=== PATIENT | female | born 1990 | race African-American/Black ===

== ENCOUNTER 2018-02-09 20:52 | Emergency (ER) | payer MEDICARE, MEDICAID ==
[~2018-02-09] VITALS: Ht 154.9 cm; Wt 59.1 kg
[2018-02-09 21:03] VITALS: Ht 154.9 cm; Wt 59.1 kg
[2018-02-09 22:23] LABS: APPEARANCE CLEAR (CLEAR); BILIRUBIN NEGATIVE (NEGATIVE); COLOR STRAW (YELLOW); GLUCOSE 100 mg/dL (NEGATIVE); KETONE NEGATIVE (NEGATIVE); NITRITE NEGATIVE (NEGATIVE); PROTEIN TRACE mg/dL (NEGATIVE); SPECIFIC GRAVITY 1.005 (1.005-1.020); UROBILINOGEN NORMAL (NORMAL)
[2018-02-09 22:24] LABS: BACTERIA MODERATE /hpf (NONE SEEN); EPITHELIAL CELLS 0-5 /hpf (0-5); WHITE CELLS - URINE 0-5 /hpf (0-5)
[2018-02-09 22:51] LABS: HEMATOCRIT 36.4 % (36.0-48.0); HEMOGLOBIN 11.7 g/dL (12-16); MCH 23.4 pg (26.0-34.0); MCHC 32.1 g/dL (31.0-37.0); MCV 72.7 fL (80.0-100.0); PLATELET COUNT 151 10x3/uL (130-400); RBC 5.01 10x6/uL (4.00-5.40); RDW 16.3 % (11.5-14.5); WBC 21.2 10x3/uL (4.8-10.8)
[2018-02-09 22:54] LABS: APTT 20.1 SECONDS (22.8-39.4); INR 1.27 (0.85-1.17); PROTIME 15.5 SECONDS (11.6-15.0)
[2018-02-09 23:12] LABS: LYMPHOCYTES 17 % (15-50); MONOCYTES 3 % (2-11); NEUTROPHILS 71 % (40-80); PLATELET ESTIMATE DECREASED
[2018-02-09 23:25] LABS: ALBUMIN 2.7 g/dL (3.4-5.0); ALKALINE PHOSPHATASE 133 U/L (46-116); ALT (SGPT) 374 U/L (10-68); BILIRUBIN - TOTAL 0.17 mg/dL (0.2-1.3); CALC OSMOLALITY 296 mosm/kg (275-300); CARBON DIOXIDE 24.4 mmol/L (21.0-32.0); CHLORIDE - SERUM 109 mmol/L (98-107); CKMB 7.3 U/L (0.0-3.6); CREATININE - SERUM 0.9 mg/dL (0.6-1.3); GLUCOSE 185 mg/dL (74-106); LIPASE 290 U/L (73-393); MAGNESIUM - SERUM 1.3 mg/dL (1.8-2.4); PROTEIN - SERUM 6.1 g/dL (6.4-8.2); SODIUM 148 mmol/L (136-145); UREA NITROGEN 7 mg/dL (7-18); eGFR NON AFRICAN AMERICAN 78 mL/min (90-120)
[2018-02-09 23:27] LABS: CREATINE KINASE 2806 UL (21-215)
[2018-02-09 23:28] LABS: CALCIUM 6.6 mg/dL (8.5-10.1); POTASSIUM - SERUM 2.1 mmol/L (3.5-5.1); TROPONIN-I 0.381 ng/mL (0.000-0.060)
[2018-02-09 23:45] LABS: UDS - AMPHET NEGATIVE QUAL (NEGATIVE); UDS - BARB NEGATIVE QUAL (NEGATIVE); UDS - BENZO POSITIVE QUAL (NEGATIVE); UDS - COCAINE NEGATIVE QUAL (NEGATIVE); UDS - OPIATE NEGATIVE QUAL (NEGATIVE); UDS - PCP NEGATIVE QUAL (NEGATIVE); UDS - THC NEGATIVE QUAL (NEGATIVE)
[2018-02-10 02:35] VITALS: BP 107/60
== END 2018-02-10 02:35 | disposition other institution (70) ==
LOC: D.ER 20:52 → EDBD 20:52 → D.ER 02-10 02:35
PROVIDERS: Family Medicine
DX: I46.9 Cardiac arrest, cause unspecified (principal); G40.909 Epilepsy, unspecified, not intractable, without status epilepticus